=== PATIENT | female | born 1990 | race African-American/Black ===

== ENCOUNTER 2019-02-20 09:43 | Emergency (ER) | payer OTHER ==
[~2019-02-20] VITALS: Ht 165.1 cm; Wt 77.8 kg
[2019-02-20 09:52] VITALS: BP 140/84
== END 2019-02-20 10:46 | disposition home or self-care (01) ==
LOC: ED 09:43
DX: T25.122A Burn of first degree of left foot, initial encounter (principal); X12.XXXA Contact with other hot fluids, initial encounter; Y93.89 Activity, other specified; Y92.89 Other specified places as the place of occurrence of the external cause; Y99.8 Other external cause status